=== PATIENT | female | born 1990 | race Caucasian/White ===

== ENCOUNTER 2020-11-27 01:19 | Emergency (ER) | payer SELFPAY ==
--- NOTE | 2020-11-27 01:54 | EDM.PDOC ---
ED HPI GENERAL MEDICAL PROBLEM - General Chief Complaint: General Stated Complaint: CHEST PAINS Time Seen by Provider: 11/27/20 01:45 Source of Information: Reports: Patient, RN Notes Reviewed History Limitations: Reports: No Limitations - History of Present Illness INITIAL COMMENTS - FREE TEXT/NARRATIVE: 30-year-old female presents emergency department today complaint of chest wall pain, she states been going on for 3 weeks happens mostly at night will wake her from sleep. There is no shortness of breath no nausea no vomiting no diaphoresis she denies any trauma there is no rash no repetitive motion. Advil does help Bilateral Chest Pain Score (Numeric/FACES): 4 - Related Data Allergies Allergy/AdvReac Type Severity Reaction Status Date / Time Penicillins Allergy Hives Verified 11/27/20 01:28 Home Meds: Home Meds Calcium Carbonate [Tums Ultra Strength] 3 tab PO ASDIRECTED PRN 11/27/20 [History] Etonogestrel [Nexplanon] 1 device IMPLANT ASDIRECTED 11/27/20 [History] Ibuprofen [Advil] 400 mg PO ASDIRECTED 11/27/20 [History] Past Medical History Neurological History: Reports: Concussion Psychiatric History: Reports: Anxiety, Depression - Past Surgical History HEENT Surgical History: Reports: Myringotomy w Tube(s), Tonsillectomy Social & Family History - Tobacco Use Tobacco Use Status *Q: Current Every Day Tobacco User Years of Tobacco use: 10 Packs/Tins Daily: 0.5 - Caffeine Use Caffeine Use: Reports: Coffee, Soda - Recreational Drug Use Recreational Drug Use: No ED ROS GENERAL - Review of Systems Review Of Systems: See Below Constitutional: Reports: No Symptoms HEENT: Reports: No Symptoms Respiratory: Reports: No Symptoms Cardiovascular: Reports: No Symptoms GI/Abdominal: Reports: No Symptoms Musculoskeletal: Reports: Other (Chest wall pain) ED EXAM, GENERAL - Physical Exam Exam: See Below Exam Limited By: No Limitations General Appearance: Alert, WD/WN, No Apparent Distress Respiratory/Chest: No Respiratory Distress, Lungs Clear, Normal Breath Sounds, No Accessory Muscle Use, Chest Non-Tender, Other (Tenderness palpation bilaterally lower rib cage) Cardiovascular: Regular Rate, Rhythm, No Murmur GI/Abdominal: Soft, Non-Tender Course - Vital Signs Last Recorded V/S: Last Vital Signs Temp 97.7 F 11/27/20 01:34 Pulse 70 11/27/20 02:32 Resp 16 11/27/20 02:32 BP 143/87 H 11/27/20 02:32 Pulse Ox 100 11/27/20 02:32 - Orders/Labs/Meds Orders: Active Orders 24 hr Category Date Time Status Chest 2V [CR] Stat Exams 11/27/20 01:52 Taken Labs: Laboratory Tests 11/27/20 11/27/20 Range/Units 02:04 02:04 WBC 13.1 H (4.5-11.0) K/uL RBC 4.69 (3.30-5.50) M/uL Hgb 12.7 (12.0-15.0) g/dL Hct 39.7 (36.0-48.0) % MCV 85 (80-98) fL MCH 27 (27-31) pg MCHC 32 (32-36) % Plt Count 388 (150-400) K/uL Neut % (Auto) 67.0 H (36-66) % Lymph % (Auto) 22.7 L (24-44) % [place] % (Auto) 6.9 H (2-6) % Eos % (Auto) 3.1 (2-4) % Baso % (Auto) 0.3 (0-1) % Sodium 136 L (140-148) mmol/L Potassium 3.8 (3.6-5.2) mmol/L Chloride 103 (100-108) mmol/L Carbon Dioxide 26 (21-32) mmol/L Anion Gap 10.8 (5.0-14.0) mmol/L BUN 17 (7-18) mg/dL Creatinine 0.8 (0.6-1.0) mg/dL Est Cr Clr Drug Dosing 103.73 mL/min Estimated GFR (MDRD) > 60 (>60) Glucose 111 H (74-106) mg/dL Calcium 8.9 (8.5-10.1) mg/dL Troponin I < 0.017 (0.000-0.056) ng/mL C-Reactive Protein 0.92 H (0.0-0.3) mg/dL Departure - Departure Time of Disposition: 03:07 Disposition: Home, Self-Care 01 Condition: Fair Clinical Impression: Chest wall pain - Discharge Information Instructions: Nonspecific Chest Pain, Adult Referrals: PCP,None [Primary Care Provider] - Forms: ED Department Discharge Additional Instructions: Continue with Aleve as needed for pain control, please followup with your primary care provider in 3-5 days if not better, please call return to the emergency department with worsening of symptoms. Sepsis Event Note (ED) - Focused Exam Vital Signs: Vital Signs Temp Pulse Resp BP Pulse Ox 11/27/20 02:32 70 16 143/87 H 100 11/27/20 01:34 97.7 F 85 20 140/85 98 - My Orders Last 24 Hours: My Active Orders 11/27/20 01:52 Chest 2V [CR] Stat - Assessment/Plan Last 24 Hours: My Active Orders 11/27/20 01:52 Chest 2V [CR] Stat Plan: Assessment Acuity = acute Site and laterality = chest wall pain Etiology = unknown Manifestations = none Location of injury = Home Lab values = WBC elevated 13.1 consistent with leukocytosis, troponins negative CRP elevated 0.92 uncertain significance chest x-ray I did review films myself I cannot appreciate any acute process, the official read from radiology is pending Plan She had improvement with Aleve taken at home recommend she continue these medications and then follow-up with primary care for further evaluation This note was dictated using [employer] voice recognition software please call with any questions on syntax or grammar.
--- NOTE | 2020-11-27 08:56 | CR ---
CHEST: 2 view CLINICAL HISTORY:Chest pain COMPARISON:None FINDINGS: The heart size, pulmonary vascularity and hilar structures are normal. No infiltrate effusion or pneumothorax is seen. IMPRESSION: No acute cardiopulmonary process.
== END 2020-11-27 03:19 | disposition home or self-care (01) ==
LOC: JP.ED 01:19
DX: R07.89 Other chest pain (principal); Z88.0 Allergy status to penicillin; Z72.0 Tobacco use
CPT/HCPCS: 36415; 71046; 71046-26; 80048; 84484; 85025; 86140; 99285-25

== ENCOUNTER 2020-12-02 23:52 | Observation (INO) | payer SELFPAY ==
--- NOTE | 2020-12-03 00:09 | EDM.PDOC ---
ED HPI GENERAL MEDICAL PROBLEM - General Chief Complaint: Abdominal Pain Stated Complaint: GULLBLADDER Time Seen by Provider: 12/02/20 23:59 Source of Information: Reports: Patient, Old Records History Limitations: Reports: No Limitations - History of Present Illness INITIAL COMMENTS - FREE TEXT/NARRATIVE: He is a 30-year-old female presenting to the ED for evaluation of right upper quadrant pain. Patient has a diagnosis of cholelithiasis with biliary colic that was made on 11/29/2019 when she was seen by Dr. Ibarra in the ED. She was contacted in follow-up by Dr. Jacobson her primary care provider and arranged to have a surgical consult next week. She has made several attempts to get a hold of Dr. Jacobson for additional pain control over the weekend as the Advil and her diet restrictions or not controlling her pain adequately. The ultrasound of the right upper quadrant was performed on 11/26/2020 showed a subcentimeter central stone and a contracted gallbladder with mild thickening of the gallbladder wall. They could not rule out chronic cholecystitis based on this. The patient does have an appointment with Dr. Hanks on 12/10/2020 for surgical consult and p ossible arrangement of a cholecystectomy. Right Upper Abdomen Pain Score (Numeric/FACES): 7 - Related Data Allergies Allergy/AdvReac Type Severity Reaction Status Date / Time Penicillins Allergy Hives Verified 12/02/20 23:59 Home Meds: Home Meds Calcium Carbonate [Tums Ultra Strength] 3 tab PO ASDIRECTED PRN 11/27/20 [History] Etonogestrel [Nexplanon] 1 device IMPLANT ASDIRECTED 11/27/20 [History] Ibuprofen [Advil] 400 mg PO ASDIRECTED 11/27/20 [History] Past Medical History Neurological History: Reports: Concussion Psychiatric History: Reports: Anxiety, Depression - Past Surgical History HEENT Surgical History: Reports: Myringotomy w Tube(s), Tonsillectomy Social & Family History - Tobacco Use Tobacco Use Status *Q: Current Every Day Tobacco User Years of Tobacco use: 18 Packs/Tins Daily: 0.5 - Caffeine Use Caffeine Use: Reports: None - Recreational Drug Use Recreational Drug Use: No ED ROS GENERAL - Review of Systems Review Of Systems: See Below Constitutional: Reports: Chills, Diaphoresis HEENT: Reports: No Symptoms Respiratory: Reports: No Symptoms Cardiovascular: Reports: No Symptoms Endocrine: Reports: No Symptoms GI/Abdominal: Reports: Abdominal Pain (Right upper quadrant abdominal pain, 7 out of 10 intensity), Constipation, Flatus, Nausea, Vomiting : Reports: No Symptoms Musculoskeletal: Reports: No Symptoms Skin: Reports: Diaphoresis Neurological: Reports: No Symptoms Psychiatric: Reports: Anxiety Hematologic/Lymphatic: Reports: No Symptoms Immunologic: Reports: No Symptoms ED EXAM, GI/ABD - Physical Exam Exam: See Below Exam Limited By: No Limitations General Appearance: Alert, Anxious, Moderate Distress Eyes: Bilateral: EOMI Throat/Mouth: Normal Oropharynx, Normal Voice, No Airway Compromise Head: Atraumatic, Normocephalic Neck: Normal Inspection, Supple. No: Lymphadenopathy (R), Lymphadenopathy (L) Respiratory/Chest: No Respiratory Distress, Lungs Clear, Normal Breath Sounds Cardiovascular: Normal Peripheral Pulses, Regular Rate, Rhythm, No Murmur GI/Abdominal Exam: Soft, Distended (Tympany to percussion throughout the middle section of the abdomen), Guarding (Right upper quadrant with positive Yanez sign), Tender (Significant right upper quadrant tenderness. Positive Yanez sign.), Abnormal Bowel Sounds (Decreased bowel sounds). No: Rebound Extremities: Normal Inspection Neurological: Alert, Oriented, Normal Cognition, No Motor/Sensory Deficits Psychiatric: Anxious Skin Exam: Diaphoretic Course - Vital Signs Last Recorded V/S: Last Vital Signs Temp 36.2 C 12/03/20 00:03 Pulse 88 12/03/20 00:41 Resp 14 12/03/20 00:41 BP 126/78 12/03/20 00:41 Pulse Ox 97 12/03/20 00:41 - Orders/Labs/Meds Orders: Active Orders 24 hr Category Date Time Status CORONAVIRUS COVID-19 SOFÍA [MOLEC] Stat Lab 12/03/20 01:14 Ordered Sodium Chloride 0.9% [Saline Flush] Med 12/03/20 00:24 Active 10 ml FLUSH ASDIRECTED PRN Saline Lock Insert [OM.PC] Routine Oth 12/03/20 00:24 Ordered Medication Orders Sodium Chloride (Sodium Chloride 0.9% 10 Ml Syringe) 10 ml FLUSH ASDIRECTED PRN PRN Reason: Keep Vein Open Last Admin: 12/03/20 00:30 Dose: 10 ml Documented by: SEBASTIAN Labs: Laboratory Tests 12/03/20 12/03/20 Range/Units 00:20 00:20 WBC 14.1 H (4.5-11.0) K/uL RBC 4.90 (3.30-5.50) M/uL Hgb 13.6 (12.0-15.0) g/dL Hct 40.8 (36.0-48.0) % MCV 83 (80-98) fL MCH 28 (27-31) pg MCHC 33 (32-36) % Plt Count 417 H (150-400) K/uL Neut % (Auto) 65.7 (36-66) % Lymph % (Auto) 23.7 L (24-44) % [place] % (Auto) 7.6 H (2-6) % Eos % (Auto) 2.8 (2-4) % Baso % (Auto) 0.2 (0-1) % Sodium 141 (140-148) mmol/L Potassium 4.1 (3.6-5.2) mmol/L Chloride 104 (100-108) mmol/L Carbon Dioxide 25 (21-32) mmol/L Anion Gap 12.4 (5.0-14.0) mmol/L BUN 13 (7-18) mg/dL Creatinine 0.9 (0.6-1.0) mg/dL Est Cr Clr Drug Dosing TNP Estimated GFR (MDRD) > 60 (>60) Glucose 116 H (74-106) mg/dL Calcium 8.6 (8.5-10.1) mg/dL Total Bilirubin 0.4 (0.2-1.0) mg/dL AST 17 (15-37) U/L ALT 38 (12-78) U/L Alkaline Phosphatase 103 (46-116) U/L C-Reactive Protein 1.29 H (0.0-0.3) mg/dL Total Protein 6.7 (6.4-8.2) g/dL Albumin 3.5 (3.4-5.0) g/dL Globulin 3.2 (2.3-3.5) g/dL Albumin/Globulin Ratio 1.1 L (1.2-2.2) Lipase 138 (73-393) U/L Meds: Medications Generic Name Dose Route Start Last Admin Trade Name Freq PRN Reason Stop Dose Admin Sodium Chloride 10 ml 12/03/20 00:24 12/03/20 00:30 Sodium Chloride 0.9% 10 Ml Syringe FLUSH 10 ml ASDIRECTED PRN Administration Keep Vein Open Discontinued Medications Generic Name Dose Route Start Last Admin Trade Name Paolo PRN Reason Stop Dose Admin Hydromorphone HCl 1 mg 12/03/20 00:24 12/03/20 00:33 Hydromorphone 1 Mg/Ml Syringe IVPUSH 12/03/20 00:25 1 mg ONETIME ONE Administration Ondansetron HCl 4 mg 12/03/20 00:24 12/03/20 00:30 Ondansetron 4 Mg/2 Ml Sdv IVPUSH 12/03/20 00:25 4 mg ONETIME ONE Administration - Re-Assessments/Exams Free Text/Narrative Re-Assessment/Exam: 12/03/20 01:18 showing a leukocytosis of 14.1 with a normal differential. Hemoglobin is 13.6 with hematocrit of 40.8, platelet count is 417,000. Her comprehensive metabolic panel is essentially normal with normal AST, ALT, alkaline phosphatase and lipase. Her C-reactive protein is mildly elevated to 1.29. I did not repeat imaging as she has a known cholelithiasis. With the elevated white count raises a concern for may be an early cholecystitis or chronic cholecystitis. I did discuss the case with Dr. Hanks who is arranging for admission of the patient and likely is planning to take her to the operating room for a cholecystectomy tomorrow. This was discussed with the patient who is in agreement with this plan. Departure - Departure Time of Disposition: 01:19 Disposition: Admitted As Inpatient 66 Clinical Impression: Biliary colic, Symptomatic cholelithiasis - Discharge Information Referrals: PCP,None [Primary Care Provider] - Forms: ED Department Discharge Sepsis Event Note (ED) - Focused Exam Vital Signs: Vital Signs Temp Pulse Resp BP Pulse Ox 12/03/20 00:41 88 14 126/78 97 12/03/20 00:03 36.2 C 86 26 H 154/100 H 99 - Problem List & Annotations (1) Biliary colic SNOMED Code(s): 49561671 Code(s): K80.50 - CALCULUS OF BILE DUCT W/O CHOLANGITIS OR CHOLECYST W/O OBST Status: Acute Priority: High Current Visit: Yes (2) Symptomatic cholelithiasis SNOMED Code(s): 184987145, 634998040 Code(s): K80.20 - CALCULUS OF GALLBLADDER W/O CHOLECYSTITIS W/O OBSTRUCTION Status: Acute Priority: High Current Visit: Yes - Problem List Review Problem List Initiated/Reviewed/Updated: Yes - My Orders Last 24 Hours: My Active Orders 12/03/20 00:24 Sodium Chloride 0.9% [Saline Flush] 10 ml FLUSH ASDIRECTED PRN Saline Lock Insert [OM.PC] Routine 12/03/20 01:14 CORONAVIRUS COVID-19 SOFÍA [MOLEC] Stat - Assessment/Plan Last 24 Hours: My Active Orders 12/03/20 00:24 Sodium Chloride 0.9% [Saline Flush] 10 ml FLUSH ASDIRECTED PRN Saline Lock Insert [OM.PC] Routine 12/03/20 01:14 CORONAVIRUS COVID-19 SOFÍA [MOLEC] Stat
[2020-12-03] MEDS ORDERED: HYDROmorphone 1 MG/ML Syringe IVPUSH ONE (00:24)
[2020-12-03] MEDS ORDERED: Sodium Chloride 0.9% 10 ML Syringe FLUSH PRN (00:24)
[2020-12-03] MEDS ORDERED: Ondansetron 4 MG/2 ML SDV IVPUSH ONE (00:24)
[2020-12-03] MEDS ORDERED: Morphine 2 MG/ML SYRINGE IVPUSH PRN (01:46)
[2020-12-03] MEDS ORDERED: diphenhydrAMINE 50 MG/ML SDV IVPUSH PRN (01:46)
[2020-12-03] MEDS ORDERED: Ondansetron 4 MG/2 ML SDV IVPUSH PRN (01:46)
[2020-12-03] MEDS ORDERED: Ertapenem 1 GM in Sodium Chloride 0.9% 100 ML IV SCH (02:00)
[2020-12-03] MEDS ORDERED: Sodium Chloride 0.9% 10 ML SDV IV SCH (02:00)
[2020-12-03] MEDS: Sodium Chloride 0.9% 1,000 ML IV SCH ×2 (02:30→12:20)
[2020-12-03] MEDS ORDERED: fentaNYL 250 MCG/5 ML SDV ONE ×2 (08:30→09:59)
[2020-12-03] MEDS ORDERED: Bupivacaine 0.5% 50 ML MDV ONE (08:50)
[2020-12-03] MEDS ORDERED: Lidocaine 1% with EPINEPHrine 1:100,000 50 ML MDV ONE (08:50)
[2020-12-03] MEDS ORDERED: Nicotine 14 MG/24 Hr Patch TRDERM SCH (09:00)
[2020-12-03] MEDS ORDERED: Ropivacaine 50 ML, dexAMETHasone 8 MG, EPINEPHrine 0.4 MG, Sodium Chloride 0.9% 27.6 ML NERVRT SCH ×4 (09:30)
[2020-12-03] MEDS ORDERED: Docusate Sodium 100 MG Cap PO PRN (09:36)
[2020-12-03] MEDS ORDERED: fentaNYL 100 MCG/2 ML SDV IVPUSH PRN (09:36)
[2020-12-03] MEDS ORDERED: Zolpidem 5 MG Tab PO PRN (09:36)
[2020-12-03] MEDS ORDERED: hydrOXYzine HCL 100 MG/2 ML SDV IM PRN (09:36)
[2020-12-03] MEDS ORDERED: Benzocaine/Cetylpyridinium/Menthol Lozenge MUCMEM PRN (09:36)
[2020-12-03] MEDS ORDERED: Neostigmine Methylsulfate 1 MG/ML 5 ML Syringe ONE (09:56)
[2020-12-03] MEDS ORDERED: Dexamethasone 4 MG/ML SDV ONE (09:56)
[2020-12-03] MEDS ORDERED: Succinylcholine 200 MG/10 ML MDV ONE (09:56)
[2020-12-03] MEDS ORDERED: Glycopyrrolate 0.2 MG/ML 5 ML MDV ONE (09:56)
[2020-12-03] MEDS ORDERED: Propofol 200 MG/20 ML SDV ONE (09:56)
[2020-12-03] MEDS ORDERED: Rocuronium 50 MG/5 ML Vial ONE (09:56)
[2020-12-03] MEDS ORDERED: Ondansetron 4 MG/2 ML SDV ONE (09:56)
[2020-12-03] MEDS ORDERED: Ketorolac 30 MG/ML SDV ONE ×2 (10:54)
[2020-12-03] MEDS: Acetaminophen/HYDROcodone 325-5 MG Tab PO PRN ×2 (13:40→17:16)
--- NOTE | 2020-12-03 14:39 | OR ---
DATE OF PROCEDURE: 12/03/2020 SURGEON: Chencho Hanks MD PROCEDURES: 1. Transversus abdominis plane blocks bilaterally. 2. Rectus sheath blocks bilaterally. COMPLICATION: None. RISKS: Risks, benefits, alternatives, and limitations including, but not limited to infection, bleeding, injury to bowel structures were all explained to the patient and she wished to proceed. PROCEDURE IN DETAIL: The patient was placed in supine position. The right transversus plane was identified first. This was accessed using a 13 megahertz ultrasound probe. 20% of the solution was then injected under direct visualization. This was then performed on the opposite side. Bilateral rectus sheaths were then injected using 13 megahertz ultrasound probe with 20% injected into each location respectively. All 4 procedures were performed in a same manner, same fashion, same technique in the same sequence using the same equipment. The patient tolerated the procedure well. Chencho Hanks MD /[id number]
--- NOTE | 2020-12-03 14:39 | OR ---
DATE OF PROCEDURE: 12/03/2020 SURGEON: Chencho Hanks MD PROCEDURE: Laparoscopic cholecystectomy. PREOPERATIVE DIAGNOSES: Cholelithiasis, cholecystitis. POSTOPERATIVE DIAGNOSES: Cholelithiasis, cholecystitis. COMPLICATIONS: None. CHANNEL ROUGHER: None. ANESTHESIA: General. RISKS: Risks, benefits, alternatives, and limitations including, but not limited to infection, bleeding, perforation, false positives, false negatives, cystic duct leaks, common bile duct injuries, hematoma, biloma, and other risks not listed here were explained to the patient and she wished to proceed. PROCEDURE IN DETAIL: The patient was placed in supine position. A supraumbilical curvilinear incision was made. A Veress needle was used to enter the abdomen without abnormality. A drop test was performed without abnormality. The abdomen was subsequently insufflated. This was followed by an Optiview trocar. Additional 10 and 2 5 mm ports were entered under direct visualization. The gallbladder was retracted cephalad. The infundibulum was retracted inferolaterally. There was a significant amount of inflammation in close triangle. Using blunt dissection, a "clear view" of the gallbladder was obtained with a single pulsatile structure entering the gallbladder and a single non-pulsatile structure entering the gallbladder. These were subsequently clipped x3 and transected. The remaining 1/3rd of the gallbladder was removed off the gallbladder bed without difficulty. This was then delivered through the superior port. This had to be enlarged due to the large stone size. The pressure was then dropped to 7. No abnormal bleeding was noted from the gallbladder bed. No abnormal bleeding was noted. The abdomen was irrigated with 1 L of irrigation. The liquid was removed. The patient was moved to multiple positions to facilitate removal. The air was removed. The wounds were closed with 3-0 Vicryl and 4-0 Vicryl in interrupted running fashion. Dermabond was applied. The patient tolerated the procedure well. Chencho Hanks MD /[id number]
== END 2020-12-03 19:12 | disposition home or self-care (01) ==
LOC: JP.ED 23:52 → JP.ICU 12-03 01:19
PROVIDERS: ADMIT Surgery; ATTEND Surgery
DX: K80.66 Calculus of gallbladder and bile duct with acute and chronic cholecystitis without obstruction (principal); F17.210 Nicotine dependence, cigarettes, uncomplicated; Z01.812 Encounter for preprocedural laboratory examination; Z88.0 Allergy status to penicillin; Z98.890 Other specified postprocedural states; Z20.822 Contact with and (suspected) exposure to COVID-19
CPT/HCPCS: 36415; 80053; 81025; 83690; 85025; 85027; 86140; 96365; 96374; 96375; 99284-25; A9270-GY; G0378; J0171; J0330; J1100; J1170; J1335; J1885; J2405; J2704; J2710; J2795; J3010; J3490; J7030; U0002

== ENCOUNTER 2021-07-27 04:19 | Emergency (ER) | payer BC | END 2021-07-27 05:08 | disposition home or self-care (01) | LOC: JP.ED 04:19 | DX: F41.0 Panic disorder [episodic paroxysmal anxiety] (principal); F43.12 Post-traumatic stress disorder, chronic; F17.210 Nicotine dependence, cigarettes, uncomplicated; Z79.899 Other long term (current) drug therapy; Z88.0 Allergy status to penicillin | CPT/HCPCS: 99282; 99283 ==